=== PATIENT | female | born 1970 | race African-American/Black ===

== ENCOUNTER → 2022-07-17 07:55 | Outpatient (CLI) | payer BC, SELFPAY ==
--- NOTE | ~2022-07-17 | US_ITS ---
EXAMINATION: US pelvic complete w TV DATE: 07/17/2022 08:50 INDICATION: History of ovarian cysts, hysterectomy TECHNIQUE: Multiple transabdominal and endovaginal sonographic images of the pelvis were obtained. COMPARISON: 03/02/2011 FINDINGS: The uterus is surgically absent. The right ovary is not visualized however no right adnexal abnormality is seen. The left ovary measures 2.7 x 1.1 x 2.6 cm. There appears to be a 4.8 x 1.8 x 4 cm cystic lesion with debris in the left adnexa.. There is normal vascular flow in the left ovary. T here is no free fluid in the pelvis. IMPRESSION: 1. Probable left adnexal cyst with debris. Follow-up ultrasound in 8-12 weeks is recommended. Reviewed, dictated and finalized at location A. IMPRESSION: 1. Probable left adnexal cyst with debris. Follow-up ultrasound in 8-12 weeks i s recommended.
== END ==
PROVIDERS: PCP Obstetrics & Gynecology; Visit Provider Obstetrics & Gynecology
DX: R93.89 Abnormal findings on diagnostic imaging of other specified body structures (principal)
CPT/HCPCS: 76830; 76856